=== PATIENT | female | born 1970 | race Caucasian/White ===

== ENCOUNTER 2016-09-21 09:18 | Emergency (ER) | payer OTHER ==
[~2016-09-21] VITALS: Ht 160 cm; Wt 70.8 kg
[2016-09-21 13:19] VITALS: BP 120/62
== END 2016-09-21 13:19 | disposition home or self-care (01) ==
LOC: ED 09:18
DX: L03.115 Cellulitis of right lower limb (principal)
CPT/HCPCS: J0696; Q0092

== ENCOUNTER 2016-10-15 17:01 | Emergency (ER) | payer OTHER ==
[2016-10-15 18:34] LABS: BASOPHIL % 0.3 % (0-2); PLATELET COUNT 230 x10^3mcL (130-400); RED CELL DISTRIBUTION WIDTH 16.6 % (11.5-14.5)
[2016-10-15 18:35] LABS: CALCIUM 7.9 mg/dL (8.5-10.1); CARBON DIOXIDE 29.8 mmol/L (21-32); CHLORIDE SERUM 106 mmol/L (98-107); CREATININE SERUM 0.5 mg/dL (0.6-1.0); GFR1 > 60 mL/min; GLUCOSE SERUM 87 mg/dL (74-106); POTASSIUM SERUM 3.4 mmol/L (3.5-5.1); SODIUM SERUM 142 mmol/L (136-145)
[2016-10-15 18:40] LABS: AMPHETAMINE QUAL UR POSITIVE (NEG <=1000)
[2016-10-15 18:40] LABS: ALBUMIN 1.8 g/dL (3.4-5.0); ALKALINE PHOSPHATASE 134 U/L (46-116); ALT/SGPT 25 U/L (14-59); AST/SGOT 20 U/L (15-37); BILIRUBIN TOTAL 0.15 mg/dL (0.20-1.00); TOTAL PROTEIN, SERUM 6.2 g/dL (6.4-8.2)
[2016-10-15 20:10] VITALS: BP 125/62
== END 2016-10-15 20:10 | disposition home or self-care (01) ==
LOC: ED 17:01
PROVIDERS: Emergency Medicine
DX: I48.91 Unspecified atrial fibrillation (principal); F15.10 Other stimulant abuse, uncomplicated; F12.10 Cannabis abuse, uncomplicated; F17.210 Nicotine dependence, cigarettes, uncomplicated; E07.9 Disorder of thyroid, unspecified
CPT/HCPCS: 36600; 83880; J3490; Q0092

== ENCOUNTER 2017-08-10 14:55 | Emergency (ER) | payer OTHER ==
[~2017-08-10] VITALS: Ht 162.6 cm; Wt 68.0 kg
[2017-08-10 15:00] VITALS: Ht 162.6 cm; Wt 68.0 kg
[2017-08-10 15:19] VITALS: BP 125/87
== END 2017-08-10 15:19 | disposition short-term general hospital (02) ==
LOC: ED 14:55
DX: S00.03XA Contusion of scalp, initial encounter (principal); M54.2 Cervicalgia; X58.XXXA Exposure to other specified factors, initial encounter; Y93.89 Activity, other specified; Y92.89 Other specified places as the place of occurrence of the external cause; Y99.8 Other external cause status